=== PATIENT | female | born 1995 | race African-American/Black ===

== ENCOUNTER 2017-02-03 00:45 | Emergency (ER) | payer OTHER ==
[2017-02-03] MEDS ORDERED: NS 0.9% 1000 ML* 1,000 ML IV ONE (02:13)
[2017-02-03] MEDS ORDERED: Ondansetron INJ* 2 MG/ML VIAL IV ONE (02:13)
--- NOTE | 2017-02-03 02:19 | ED ---
GI/ HPI - HPI Summary HPI Summary: Pt here w/ nausea, vomiting and diarrhea x 2 days. Ate some undercooked meat at a [place] food restaurant in the mall. After eating some of this, realized it seemed off and stopped eating it. Hours later she developed nausea followed by vomiting. This occurred for a while before she started having diarrhea as well. Feels flushed and has felt chilled earlier, but better now. No sg abdominal pain - just feels bloated, crampy, gassy. LMP January 13 - no risk of . Denies urinary sx, flank pain and no vaginal d/c. No h/o GI issues. Drank gatorade earlier tonight in an effort to avoid dehydration - kept most of it down but did vomit some back up and continues to have diarrhea. - History of Current Complaint Chief Complaint: EDNauseaVomitDiarrh Time Seen by Provider: 02/03/17 02:01 Stated Complaint: VOMITING Hx Obtained From: Patient Pain Intensity: 0 - Allergy/Home Medications Allergies/Adverse Reactions: Allergies Allergy/AdvReac Type Severity Reaction Status Date / Time No Known Allergies Allergy Verified 02/03/17 00:58 PMH/Surg Hx/FS Hx/Imm Hx Previously Healthy: Yes GI History: Denies: Hx Crohn's Disease, Hx Gall Bladder Disease, Hx Gastroesophageal Reflux Disease, Hx Irritable Bowel, Hx Obstructive Bowel, Hx Ulcer Infectious Disease History: No Infectious Disease History: Denies: Hx Clostridium Difficile, Hx Hepatitis, Hx Human Immunodeficiency Virus (HIV), Hx of Known/Suspected MRSA, Hx Shingles, Hx Tuberculosis, Hx Known/ Suspected VRE, Hx Known/Suspected VRSA, History Other Infectious Disease, Traveled Outside the [place] in Last 30 Days - Family History Known Family History: Positive: None - Social History Occupation: Student Lives: With Family - roommates Alcohol Use: Occasionally Hx Substance Use: No Substance Use Type: Reports: None Hx Tobacco Use: No Smoking Status (MU): Never Smoked Tobacco Review of Systems Constitutional: Other - see HPI ENT: Negative Negative: Chest Pain Negative: Shortness Of Breath, Cough Gastrointestinal: Other - see HPI Positive: Vomiting, Diarrhea, Nausea. Negative: Abdominal Pain Genitourinary: Negative Musculoskeletal: Negative Negative: Rash Neurological: Negative Negative: Headache Psychological: Normal All Other Systems Reviewed And Are Negative: Yes Physical Exam Triage Information Reviewed: Yes Vital Signs On Initial Exam: Initial Vitals Temp Pulse Resp BP Pulse Ox 98.1 F 88 18 102/61 100 02/03/17 00:56 02/03/17 00:56 02/03/17 00:56 02/03/17 00:56 02/03/17 00:56 Vital Signs Reviewed: Yes Appearance: Positive: Well-Appearing, No Pain Distress, Well-Nourished Skin: Positive: Warm, Dry Head/Face: Positive: Normal Head/Face Inspection Eyes: Positive: Normal, EOMI, Conjunctiva Clear - anicteric sclera ENT: Positive: Hearing grossly normal, Pharynx normal - mucosa moist Respiratory/Lung Sounds: Positive: Clear to Auscultation, Breath Sounds Present Cardiovascular: Positive: Normal, RRR, S1, S2. Negative: Murmur, Rub Abdomen Description: Positive: Nontender, No Organomegaly, Soft, Distended - mild Bowel Sounds: Positive: Present Musculoskeletal: Positive: Normal, Strength/ROM Intact Neurological: Positive: Normal, Sensory/Motor Intact, Alert, Oriented to Person Place, Time, CN Intact II-III Psychiatric: Positive: Normal Diagnostics - Vital Signs Vital Signs Temp Pulse Resp BP Pulse Ox 02/03/17 00:56 98.1 F 88 18 102/61 100 - Laboratory Lab Statement: Any lab studies that have been ordered have been reviewed, and results considered in the medical decision making process. GIGU Course/Dx - Course Course Of Treatment: Pt appears overall well considering. Provided IVF and anti- emetic medication as well as education about hdyration and introduction back to food. Offered stool sample collection in the event sx continue. Follow-up with Frank if sx continue but return to ED if danger s/sx present. Pt agrees w/ plan. - Diagnoses Provider Diagnoses: Food poisoning, unspecified Discharge - Discharge Plan Condition: Stable Disposition: HOME Patient Education Materials: Food Poisoning (ED) Referrals: [facility] FRANK Echavarria [Medical Doctor] - Additional Instructions: Stay hydrated and consume clears only for 24-48 hours. You may advance to a bland, low residue diet after (ie. banana, rice, applesauce, toast, broth, jello , etc). You may take anti-nausea medication over the next 24 hours to keep fluids down but is vomiting persists past this time despite medication, return to ED. You may follow-up with Frank QUESADA otherwise. *if you develop fever, chills, chest pain, abdominal pain, bloody diarrhea, return to ED
[2017-02-03] MEDS ORDERED: Ondansetron ODT TAB* 4 MG PO ONE ×2 (02:27→02:28)
[2017-02-03 03:18] VITALS: BP 105/79
== END 2017-02-03 03:07 | disposition home or self-care (01) ==
LOC: ED 00:45
DX: T62.91XA Toxic effect of unspecified noxious substance eaten as food, accidental (unintentional), initial encounter (principal); R11.2 Nausea with vomiting, unspecified; R19.7 Diarrhea, unspecified; Y92.9 Unspecified place or not applicable
CPT/HCPCS: 96374; 99282

== ENCOUNTER 2018-12-09 11:44 | Emergency (ER) | payer OTHER ==
[2018-12-09 11:52] VITALS: BP 115/74
--- NOTE | 2018-12-09 12:20 | UC ---
[facility] HPI - HPI Summary HPI Summary: 23 y/o female presents to the urgent care c/o RT lower jaw pain w/ swelling since last night. Pt thinks it is her wisdom tooth that is causing her pain. She has felt that in the past but it last for a few hrs and then resolved. She doesn't have a dentist. Pain is severe today 9/10 and worse with eating associated with [place]. She has not taking any medications to alleviate symptoms. Pt denies fever, trimus, dizziness, SOB, chest pain, abdominal pain, N/V/D. - History of Current Complaint Chief Complaint: UCGeneralIllness Stated Complaint: MOUTH PAIN Time Seen by Provider: 12/09/18 12:19 Hx Obtained From: Patient Hx Last Menstrual Period: 11/20/18 Onset/Duration: Gradual Onset, Lasting Days - 1 day, Still Present, Worse Since - today Severity: Severe Pain Intensity: 9 Pain Scale Used: 0-10 Numeric Aggravating Factor(s): Chewing Alleviating Factor(s): OTC Meds - tylenol PO Related History: Swelling - Allergies/Home Medications Allergies/Adverse Reactions: Allergies Allergy/AdvReac Type Severity Reaction Status Date / Time No Known Allergies Allergy Verified 12/09/18 11:52 PMH/Surg Hx/FS Hx/Imm Hx Previously Healthy: Yes - Pt denies PMHX - Surgical History Surgical History: None - Family History Known Family History: Positive: Diabetes - Social History Occupation: Student Lives: Dormitory/Roommates Alcohol Use: Occasionally Substance Use Type: None Smoking Status (MU): Never Smoked Tobacco - Immunization History Most Recent Influenza Vaccination: Sep 2015 Vaccination Up to Date: Yes Review of Systems All Other Systems Reviewed And Are Negative: Yes Constitutional: Positive: Negative Skin: Positive: Other - swelling on the RT lower jaw gum Eyes: Positive: Negative ENT: Positive: Dental Pain - RT lowe jaw Respiratory: Positive: Negative Cardiovascular: Positive: Negative Gastrointestinal: Positive: Negative Genitourinary: Positive: Negative Motor: Positive: Negative Neurovascular: Positive: Negative Musculoskeletal: Positive: Negative Neurological: Positive: Headache Psychological: Positive: Negative Is Patient Immunocompromised?: No Physical Exam - Summary Physical Exam Summary: Vital Signs Reviewed: Yes General: Well-Appearing, Well-Nourished female sitting in the examining table w/ o any respiratory or pain distress Eyes: Positive: Conjunctiva Clear - PERRLA, EOMI, ENT: Positive: Normal ENT inspection, Hearing grossly normal, Pharynx normal, TMs normal - B/L external ear canals clear,. Negative: Tonsillar swelling, Tonsillar exudate, Trismus Dental: Positive: Gross Decay/Caries w/ fracture molars #32 , Abscess @ - gingival swelling and erythema, tender to percussion. involves tissue surrounding the molar #32, Cervical Lymphadenopathy - anterior Neck: Positive: Supple Respiratory: Positive: Chest non-tender, Lungs clear, Normal breath sounds, No respiratory distress Cardiovascular: Positive: RRR, No Murmur, Pulses Normal, Brisk Capillary Refill Abdomen Description: Positive: Nontender, No Organomegaly, Soft. Negative: CVA Tenderness (R), CVA Tenderness (L) Bowel Sounds: Positive: Present Musculoskeletal: Positive: Strength Intact, ROM Intact, No Edema Neurological Exam: Normal Psychological Exam: Normal Skin Exam: Normal Triage Information Reviewed: Yes Vital Signs: Initial Vital Signs Temp 98.1 F 12/09/18 11:46 Pulse 81 12/09/18 11:46 Resp 12 12/09/18 11:46 BP 115/74 12/09/18 11:46 Pulse Ox 99 12/09/18 11:46 Dental Complaint Course/Dx - Course Course Of Treatment: 23 y/o female presents to the urgent care c/o RT lower jaw pain w/ swelling since last night. Pt thinks it is her wisdom tooth that is causing her pain. She has felt that in the past but it last for a few hrs and then resolved. She doesn't have a dentist. Pain is severe today 9/10 and worse with eating associated with [place]. She has not taking any medications to alleviate symptoms. Pt denies fever, trimus, dizziness, SOB, chest pain, abdominal pain, N /V/D. Hx obtained. Pt with dental abscess around molar #32 on examination. Pt given Toradol IM inj by the nurse and viscous Lidocaine at the clinic to alleviate severe dental pain. Pt Rx Clindamycin PO, Viscous Lidocaine and Ibuprofen PO fas directed below. Pt strongly advised to f/u with Dentist as soon as possible further evaluation and treatment. D/C instructions explained. Pt understood and agreed with plan of care. - Differential Dx/Diagnosis Differential Diagnosis/Dx: Dental Abscess, Dental Caries, Fractured Tooth, Odontogenic Pain, Peridontic Disease Provider Diagnosis: Dental abscess Discharge - Sign-Out/Discharge Documenting (check all that apply): Patient Departure - D/C home All imaging exams completed and their final reports reviewed: No Studies - Discharge Plan Condition: Stable Disposition: HOME Prescriptions: Clindamycin Cap(NF) [Clindamycin Cap 300 mg Cap(NF)] 300 mg PO TID #30 cap Ibuprofen TAB* [Motrin TAB* 600 MG] 600 mg PO Q6H PRN #30 tab PRN Reason: dental pain Lidocaine 2% VISCOUS* [Xylocaine 2% Viscous*] 15 ml SWISH SPIT Q6H PRN #1 btl PRN Reason: dental pain Patient Education Materials: Dental Abscess (ED) Referrals: [facility] [place] [facility] [Outside] - 2 Days Additional Instructions: 1-Please take full course of antibiotic to avoid resistance. Please take yogurts with probiotics or Culturelle to protect your GI system 2- Take Ibuprofen PO q6-8hrs after meals to alleviate pain and swelling startint tomorrow since you were given at Toradol IM inj today. If pain persists today you can take Tylenol PO. 3- F/u with your Dentist or Dental List provided as soon as possible for further treatment. 4- If symptoms do not improve or worsen please return to the urgent care or f/u with your PCP in 2 days for further evaluation and treatment - Billing Disposition and Condition Condition: STABLE Disposition: Home - Attestation Statements Provider Attestation: I was available for consult. This patient was seen by the NENITA. The patient was not presented to , seen by or examined by fl -Fidelia Rodrigues MD
[2018-12-09] MEDS ORDERED: Lidocaine 2% VISCOUS* 15 ML UDC SWISH SPIT ONE (12:28)
[2018-12-09] MEDS ORDERED: Ketorolac INJ* 30 MG/ML 1 ML VIAL IM ONE (12:28)
== END 2018-12-09 13:01 | disposition home or self-care (01) ==
LOC: UCEAST 11:44
DX: K04.7 Periapical abscess without sinus (principal)
CPT/HCPCS: 96372; 99212; G0463; J1885